=== PATIENT | female | born 1990 | race Caucasian/White ===

== ENCOUNTER 2017-07-30 15:36 | Emergency (ER) | payer OTHER ==
[2017-07-30] MEDS ORDERED: TDAP ADULT 0.5 ML INJ (BOOSTRIX) IM ONE (16:04)
--- NOTE | 2017-07-30 16:04 | EDPHY ---
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 Over the last week she has been handling some baby raccoon's that they were rehabilitating. She has been feeding them with a bottle and exposed to saliva. She did have an open wound on her hand. Over the last few days several of the raccoon's have been dying unexpectedly. 1 was found in a puddle of drool and the other 1 was having muscle fasciculations. They are currently being tested for rabies. The patient and her coworkers have come for boosters. They have been previously vaccinated. Her vaccination series was completed in 2012 and she had normal titers tested as recently as 2017. She is also requesting an update to her tetanus vaccine. REVIEW OF SYSTEMS: Constitutional: denies: chills, fever, recent illness, recent injury EENTM: denies: blurred vision, double vision, nose congestion Respiratory: denies: cough, shortness of breath Cardiac: denies: chest pain, irregular heart rate, lightheadedness, palpitations Gastrointestinal/Abdominal: denies: abdominal pain, diarrhea, nausea, vomiting, blood streaked stools Genitourinary: denies: dysuria, frequency, hematuria, pain Musculoskeletal: denies: joint pain, muscle pain Skin: denies: lesions, rash, jaundice, bruising Neurological: denies: headache, numbness, paresthesia, tingling, dizziness, weakness Hematologic/Lymphatic: denies: blood clots, easy bleeding, easy bruising Immunologic/allergic: denies: HIV/AIDS, transplant EXAM: GENERAL: Well-appearing, well-nourished and in no acute distress. HEAD: Atraumatic, normocephalic. EYES: Pupils equal round and reactive to light, extraocular movements intact, sclera anicteric, conjunctiva are normal. ENT: TMs normal, nares patent, oropharynx clear without exudates. Moist mucous membranes. NECK: Normal range of motion, supple without lymphadenopathy or JVD. LUNGS: Breath sounds clear to auscultation bilaterally and equal. No wheezes rales or rhonchi. HEART: Regular rate and rhythm without murmurs, rubs or gallops. ABDOMEN: Soft, nontender, normoactive bowel sounds. No guarding, no rebound. No masses appreciated. BACK: No CVA tenderness, no spinal tenderness, step-offs or deformities EXTREMITIES: Normal range of motion, no pitting or edema. No clubbing or cyanosis. NEUROLOGICAL: Cranial nerves II through XII grossly intact. Normal speech, normal gait. 5/5 strength, normal movement in all extremities, normal sensation PSYCH: Normal mood, normal affect. SKIN: Warm, dry, normal turgor, no visible rashes or lesions. Source: Patient Exam Limitations: No limitations - Personal History LMP (Females 10-55): 22-28 Days Ago Current Tetanus/Diphtheria Vaccine: Unsure Current Tetanus Diphtheria and Acellular Pertussis (TDAP): Unsure - Medical/Surgical History Hx Asthma: No Hx Chronic Respiratory Disease: No Hx Diabetes: No Hx Cardiac Disease: No Hx Renal Disease: No Hx Cirrhosis: No Hx Alcoholism: No Hx HIV/AIDS: No Hx Splenectomy or Spleen Trauma: No - Family History Significant Family History: No pertinent family hx - Social History Smoking Status: Never smoked Alcohol Use: Sober Drug Use: None Constitutional: Initial Vital Signs Temperature (C) 36.9 C 07/30/17 15:37 Heart Rate 104 H 07/30/17 15:37 Respiratory Rate 16 07/30/17 15:37 Blood Pressure 129/99 H 07/30/17 15:37 O2 Sat (%) 98 07/30/17 15:37 O2 Delivery Mode Room Air Allergies/Adverse Reactions: No Known Allergies Allergy (Unverified 07/30/17 15:43) Medical Decision Making ED Course/Re-evaluation: I spoke with Dr. Josiane Terry who recommends vaccine booster now and another 1 on Wednesday in their office. The patient and mom are happy with this plan. Will also update her tetanus vaccine. She is currently asymptomatic. Differential Diagnosis: Partial list of the Differential diagnosis considered include but were not limited to; rabies exposure and although unlikely based on the history and physical exam, I also considered wound infection, foreign body. - Data Points Medications Given: Discontinued Medications Diphtheria/Tetanus/Acell Pertussis (Boostrix) 0.5 ml IM .ONCE ONE Stop: 07/30/17 16:05 Last Admin: 07/30/17 16:32 Dose: 0.5 ml Rabies Vaccine Human Diploid Cell (Rabavert) 2.5 unit IM .ONCE ONE Stop: 07/30/17 16:07 Last Admin: 07/30/17 16:19 Dose: 2.5 unit Departure - Departure Disposition: Home, Routine, Self-Care Clinical Impression: Rabies exposure Condition: Fair Instructions: Rabies Vaccine (By injection) Additional Instructions: Return here or go to the [facility] on Wednesday or Wednesday for your 2nd vaccination booster. Referrals: NONE *PRIMARY CARE P,. [Primary Care Provider] - As per Instructions Josiane Terry MD [Medical Doctor] - 2-3 days without fail
[2017-07-30] MEDS ORDERED: RABIES VACC, HUMAN DIPLOID/PF 2.5 UNIT VIAL (RABAVERT) IM ONE (16:06)
[2017-07-30 16:43] VITALS: BP 110/69
== END 2017-07-30 16:42 | disposition home or self-care (01) ==
DX: Z20.3 Contact with and (suspected) exposure to rabies (principal); Z23 Encounter for immunization